=== PATIENT | male | born 1955 | race Caucasian/White ===

== ENCOUNTER 2016-10-17 22:42 | Emergency (ER) | payer OTHER ==
[2016-10-17 23:15] LABS: BASOPHIL 0.4 % (0-2); HCT 37.5 % (42.0-52.0); HGB 12.8 g/dl (13.2-18.0); LYMPHOCYTE 32.2 % (15-48); MCH 27.4 pg (25.0-31.0); MCHC 34.1 g/dL (32.0-36.0); MCV 80.3 fL (78.0-100.0); MONOCYTE 5.6 % (0-12); MPV 10.2 fL (6.0-9.5); NEUTROPHIL 60.8 % (41-80); PLT 264 K/uL (150-400); RBC 4.67 M/uL (4.70-6.00); RDW 13.7 % (11.5-14.0); WBC 8.9 K/uL (4.0-10.5)
[2016-10-17 23:22] LABS: INR 1.08 (0.9-1.2); PROTHROMBIN TIME 13.6 SECONDS (11.7-14.0); PTT 22.4 SECONDS (23.2-31.4)
[2016-10-17 23:33] LABS: CREATININE 2.2 mg/dL (0.7-1.2); POTASSIUM 3.6 mmol/L (3.5-5.1)
== END 2016-10-18 01:54 | disposition home or self-care (01) ==
LOC: FER 22:42
PROVIDERS: Emergency Medicine
DX: S81.811A Laceration without foreign body, right lower leg, initial encounter (principal); E11.9 Type 2 diabetes mellitus without complications; I10 Essential (primary) hypertension; Z23 Encounter for immunization; W19.XXXA Unspecified fall, initial encounter; Y92.009 Unspecified place in unspecified non-institutional (private) residence as the place of occurrence of the external cause
CPT/HCPCS: 36415; 73590; 80048; 85025; 85610; 85730; 86850; 86900; 86901; 90471; 90715